=== PATIENT | female | born 2000 | race Caucasian/White ===

== ENCOUNTER 2022-02-12 19:31 | Emergency (ER) | payer BC ==
[~2022-02-12] VITALS: Ht 165.1 cm; Wt 58.1 kg
[2022-02-12 19:31] VITALS: BP 130/91
== END 2022-02-13 00:48 | disposition left against medical advice (07) ==
LOC: ER 19:31
DX: J02.9 Acute pharyngitis, unspecified (principal); Z53.21 Procedure and treatment not carried out due to patient leaving prior to being seen by health care provider